=== PATIENT | female | born 1985 | race Two or more races ===

== ENCOUNTER 2017-01-22 06:02 | Emergency (ER) | payer OTHER ==
[~2017-01-22] VITALS: Ht 162.6 cm; Wt 65.9 kg
[2017-01-22 09:44] VITALS: BP 127/88
== END 2017-01-22 09:44 | disposition home or self-care (01) ==
LOC: ED 06:02
DX: O26.891 Other specified pregnancy related conditions, first trimester (principal); Z3A.12 12 weeks gestation of pregnancy
CPT/HCPCS: Q0092; Q0162

== ENCOUNTER 2017-02-28 01:55 | Emergency (ER) | payer OTHER ==
[2017-02-28 03:15] LABS: microscopic required? YES; urine erythrocyte TRACE (NEGATIVE)
[2017-02-28 03:22] LABS: CALCIUM 8.4 mg/dL (8.5-10.1); CARBON DIOXIDE 22.9 mmol/L (21-32); CHLORIDE SERUM 106 mmol/L (98-107); CREATININE SERUM 0.5 mg/dL (0.6-1.0); GFR1 > 60 mL/min; GLUCOSE SERUM 92 mg/dL (74-106); POTASSIUM SERUM 3.5 mmol/L (3.5-5.1); SODIUM SERUM 140 mmol/L (136-145)
[2017-02-28 03:24] LABS: BASOPHIL % 0.3 % (0-2); PLATELET COUNT 324 x10^3mcL (130-400)
[2017-02-28 03:27] LABS: ALKALINE PHOSPHATASE 66 U/L (46-116); ALT/SGPT 26 U/L (14-59); AMYLASE 98 U/L (25-115); AST/SGOT 19 U/L (15-37); BILIRUBIN TOTAL 0.19 mg/dL (0.20-1.00); LIPASE 159 IU/L (73-393); TOTAL PROTEIN, SERUM 6.6 g/dL (6.4-8.2)
[2017-02-28 03:30] LABS: RED CELL DISTRIBUTION WIDTH 15.4 % (11.5-14.5)
[2017-02-28 04:42] VITALS: BP 105/58
== END 2017-02-28 04:42 | disposition home or self-care (01) ==
LOC: ED 01:55
PROVIDERS: Emergency Medicine
DX: O23.42 Unspecified infection of urinary tract in pregnancy, second trimester (principal); Z3A.18 18 weeks gestation of pregnancy
CPT/HCPCS: 36415